=== PATIENT | male | born 1985 | race Caucasian/White ===

== ENCOUNTER 2017-01-09 03:00 | Emergency (ER) | payer OTHER ==
--- NOTE | 2017-01-09 03:29 | ED Physician Documentation ---
General Adult - HISTORIAN Historian: patient, paramedics - HPI Stated Complaint: CP Chief Complaint: General Adult Additional Information: Says he has had L sided CP on and off all day. Valium makes it better, but he couldn't get to [place] to order picker his prescription. Has panic attacks with CP but says this is worse. Claims to take valium, percocet and methadone. Changes pharmacy info when asked. Will not provide any other information including history, primary provider, or correct name. (Recognized by one of nurses). Says any other info concerning him is private and he will not share it. "Would you shoot me (a ride) to [place]?" Evasive. 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 Smoker. - ROS CONST: no problems (unknown, pt will not say) - PAST HX Past History: other (unknown plu see CC) Allergies/Adverse Reactions: Allergies Allergy/AdvReac Type Severity Reaction Status Date / Time latex Allergy Intermediate Hives Verified 12/10/14 23:40 Home Medications: Ambulatory Orders Medication Instructions Recorded Diazepam [Valium] 1 tab PO DIRECTED 01/09/17 Methadone HCl [Dolophine HCl] 20 mg PO TID 01/09/17 - SOCIAL HX Smoking History: other (unknown, former smoker) - FAMILY HX Family History: No (unknown) - VITAL SIGNS Vital Signs: Vital Signs Temp Pulse Resp BP Pulse Ox 110/72 12/11/14 00:28 - REVIEWED ASSESSMENTS Nursing Assessment Reviewed: Yes Vitals Reviewed: Yes Progress - Progress Progress: 0323, informed patient that if he would not provide any information, we could not care for him. 0330, texting. 0355, refuses to sign AMA papers. IV removed. Leaves. EKG from ambulance shows sinus arrhythmia. No ischemic changes. General Adult Physical Exam - PHYSICAL EXAM GENERAL APPEARANCE: variable distress. Texting and calm, crying. EENT: eye inspection normal NECK: supple RESPIRATORY: no resp distress BACK: normal inspection SKIN: normal color EXTREMITIES: other (antalgic gait) NEURO: motor nml Discharge Clincal Impression: Chest pain Qualifiers: Chest pain type: unspecified Qualified Code(s): R07.9 - Chest pain, unspecified Home Medications: Ambulatory Orders Diazepam [Valium] 1 tab PO DIRECTED 01/09/17 Methadone HCl [Dolophine HCl] 20 mg PO TID 01/09/17 Condition: Fair Disposition: 07 AGAINST MEDICAL ADVICE Decision to Admit: NO Decision Time: 03:53
[2017-01-09 04:46] VITALS: BP 132/85
== END 2017-01-09 03:53 | disposition left against medical advice (07) ==
LOC: ED 03:00
DX: R07.9 Chest pain, unspecified (principal)
CPT/HCPCS: 99283